=== PATIENT | male | born 1950 | race Caucasian/White ===

== ENCOUNTER 2018-12-27 07:34 | Day surgery (SDC) | payer MEDICARE ==
[2018-12-25 15:38] LABS: ALANINE AMINOTRANSFERASE 25 U/L (12-78); ALBUMIN 3.7 g/dL (3.4-5.0); ANION GAP 8 mmol/L (5-15); CALCIUM 8.6 mg/dL (8.5-10.1); CHLORIDE 110 mmol/L (98-107)
[2018-12-25 15:39] LABS: ALKALINE PHOSPHATASE 64 U/L (45-117); BILIRUBIN,TOTAL 0.6 mg/dL (0.2-1.0); TOTAL PROTEIN 6.6 g/dL (6.4-8.2)
[~2018-12-27] VITALS: Ht 188 cm; Wt 67.0 kg
[~2018-12-27 07:34] MED LIST: ASPI-496 PO; LOSA50TA14 PO; MELO15TA24 PO; MULT1TAB60 PO; PRAV40TA2 PO
[2018-12-27] MEDS ORDERED: LACTATED RINGERS 1,000 ML IV SCH (07:49)
[2018-12-27 07:53] VITALS: BP 121/72
[2018-12-27] MEDS ORDERED: PROMETHAZINE 25 MG/ML, 1ML IV PRN (08:00)
[2018-12-27] MEDS ORDERED: PROCHLORPERAZINE 5 MG/ML, 2ML IV PRN (08:00)
[2018-12-27] MEDS ORDERED: DIPHENHYDRAMINE 50 MG/ML, 1ML IVPush PRN (08:00)
[2018-12-27] MEDS ORDERED: HYDROmorphone 2 MG/ML, 1ML IVPush PRN (08:00)
[2018-12-27] MEDS ORDERED: LABETALOL 5MG/ML, 20ML IV PRN (08:00)
[2018-12-27] MEDS ORDERED: GABAPENTIN 300 MG CAPSULE PO ONE (08:00)
[2018-12-27] MEDS ORDERED: HALOPERIDOL 5 MG/ML IV PRN (08:00)
[2018-12-27] MEDS ORDERED: MEPERIDINE/PF 25MG/0.5ML IVPush PRN (08:00)
[2018-12-27] MEDS ORDERED: ACETAMINOPHEN 500 MG TABLET PO ONE (08:00)
[2018-12-27] MEDS ORDERED: OXYcodone 5 MG/5 ML ORAL.SOL UDC PO PRN (08:00)
[2018-12-27] MEDS ORDERED: hydrALAzine 20 MG/ML, 1ML IV PRN (08:00)
[2018-12-27] MEDS ORDERED: LIDOCAINE-MPF 1%, 2ML INFIL ONE (08:00)
[2018-12-27] MEDS ORDERED: METOPROLOL 1 MG/ML, 5ML IV PRN (08:00)
[2018-12-27] MEDS ORDERED: FENTANYL PF 250 MCG/5ML ONE (08:45)
[2018-12-27] MEDS ORDERED: BUPIVACAINE/PF 0.25% ONE (08:48)
[2018-12-27] MEDS ORDERED: EPINEPHRINE 1 MG/ML, 1ML ONE (08:48)
[2018-12-27] MEDS ORDERED: KETOROLAC 30 MG/1 ML ONE (09:06)
[2018-12-27] MEDS ORDERED: PROPOFOL 10 MG/ML, 20ML ONE (10:05)
[2018-12-27] MEDS ORDERED: GLYCOPYRROLATE 0.2MG/1ML, 5ML ONE (10:05)
[2018-12-27] MEDS ORDERED: NEOSTIGMINE 1 MG/ML, 10ML ONE (10:05)
[2018-12-27] MEDS ORDERED: SUCCINYLCHOLINE 20 MG/ML, 10ML ONE (10:05)
[2018-12-27] MEDS ORDERED: CEFAZOLIN 1,000 MG ONE (10:05)
[2018-12-27] MEDS ORDERED: DEXAMETHASONE 4 MG/ML, 1ML ONE (10:05)
[2018-12-27] MEDS ORDERED: ROCURONIUM 10MG/ML,5ML ONE (10:05)
[2018-12-27] MEDS ORDERED: ONDANSETRON 2MG/ML, 2ML ONE (10:05)
[2018-12-27] MEDS ORDERED: FENTANYL PF 100 MCG/2ML ONE (10:26)
[2018-12-27] MEDS ORDERED: OXYcodone 5 MG/5 ML ORAL.SOL UDC ONE (10:27)
[2018-12-27] MEDS: FENTANYL PF 100 MCG/2ML IV PRN ×2 (10:39→10:52)
== END 2018-12-27 13:00 | disposition home or self-care (01) ==
LOC: OUT 07:34
PROVIDERS: ATTEND Surgery
DX: K40.90 Unilateral inguinal hernia, without obstruction or gangrene, not specified as recurrent (principal); I10 Essential (primary) hypertension; J44.9 Chronic obstructive pulmonary disease, unspecified; F17.210 Nicotine dependence, cigarettes, uncomplicated; Z72.89 Other problems related to lifestyle; Z79.82 Long term (current) use of aspirin; Z79.1 Long term (current) use of non-steroidal anti-inflammatories (NSAID); Z79.899 Other long term (current) drug therapy; Z85.828 Personal history of other malignant neoplasm of skin; Z98.890 Other specified postprocedural states
CPT/HCPCS: 36415; 49650; 80053; 93005; C1727; C1781; J0171; J0330; J0690; J1100; J1885; J2405; J2704; J2710; J3010; J3490; J7120